=== PATIENT | male | born 2000 | race Hispanic/Latino ===

== ENCOUNTER 2022-05-09 22:07 | Emergency (ER) | payer SELFPAY ==
[2022-05-09] MEDS ORDERED: Boostrix 0.5 ML (Tdap) VIAL (>/=7 yrs of age) ONE (22:40)
[2022-05-09] MEDS ORDERED: Ibuprofen 800 MG TAB ONE (22:41)
[2022-05-09] MEDS ORDERED: Bacitracin 1 PK ONE (22:58)
== END 2022-05-09 23:11 | disposition home or self-care (01) ==
LOC: MADERS 22:07
DX: S80.11XA Contusion of right lower leg, initial encounter (principal); W55.12XA Struck by horse, initial encounter; Z23 Encounter for immunization
CPT/HCPCS: 90471; 90715